=== PATIENT | male | born 1975 | race African-American/Black ===

== ENCOUNTER 2021-03-21 08:52 | Emergency (ER) | payer OTHER ==
[~2021-03-21] VITALS: Ht 165.1 cm; Wt 85.0 kg
[2021-03-21 09:28] LABS: BASOPHILS % 1.5 % (0.0-2.0); EOSINOPHILS % 2.5 % (0.0-5.0); HEMATOCRIT. 42.5 % (42.0-52.0); HEMOGLOBIN. 13.9 g/dL (14.0-18.0); LYMPHOCYTES % 24.5 % (20.0-50.0); MEAN CORPUSCULAR HEMOGLOBIN 26.9 pg (28.0-32.0); MEAN CORPUSCULAR VOLUME 82.2 fL (80.0-94.0); MEAN PLATELET VOLUME 7.5 fl (7.4-10.4); MONOCYTES % 7.2 % (2.0-8.0); NEUTROPHILS % 64.3 % (40.0-76.0); PLATELET 346 x1000/uL (130-400); RED BLOOD CELL COUNT 5.17 mill/uL (4.7-6.1); RED CELL DISTRIBUTION WIDTH 14.4 % (11.6-14.6)
[2021-03-21] MEDS ORDERED: KETOROLAC 30MG/ML VIAL IV STA (09:30)
[2021-03-21] MEDS ORDERED: SODIUM CHLORIDE 0.9% 1,000 ML IV ONE (09:30)
[2021-03-21 09:32] LABS: CHLORIDE 107 mEq/L (98-107)
[2021-03-21] MEDS ORDERED: ENALAPRIL 2.5MG TABLET PO ONE (10:00)
[2021-03-21] MEDS ORDERED: ASPIRIN 81MG TABLET PO ONE (13:45)
[2021-03-21] MEDS ORDERED: ASPI-1406 MT (13:55)
[2021-03-21] MEDS ORDERED: ENAL2.5T17 MT (13:55)
[2021-03-21 15:30] VITALS: BP 168/101
== END 2021-03-21 15:30 | disposition home or self-care (01) ==
LOC: ER 08:52
DX: R07.89 Other chest pain (principal); Z79.82 Long term (current) use of aspirin
CPT/HCPCS: 36415; 71045; 80053; 83880; 84484; 85025; 93005; 93970; 96361; 96374; 99285; J1885; J7030